=== PATIENT | female | born 1985 | race Caucasian/White ===

== ENCOUNTER 2023-07-06 14:55 | Emergency (ER) | payer MEDICAID ==
[~2023-07-06] VITALS: Ht 157.5 cm; Wt 63.5 kg
[2023-07-06 15:00] VITALS: BP_SYST 119; PULSE 113; RESP 24; TEMP 98.1; O2SAT 99
[2023-07-06 16:06] LABS: BASOPHILS # (AUTO) 0.1 K/uL (0.0-0.2); BASOPHILS % (AUTO) 0.9 % (0.0-2.0); EOSINOPHILS % (AUTO) 0.7 % (0.0-4.0); HEMATOCRIT 42.1 % (36-48); HEMOGLOBIN 13.8 g/dL (12.0-16.0); LYMPHOCYTES # (AUTO) 1.6 K/uL (1.0-5.5); LYMPHOCYTES % (AUTO) 23.6 % (20.5-51.5); MEAN CORPUSCULAR HEMOGLOBIN 27 pg (27-31); MEAN CORPUSCULAR HGB CONC 33 % (32-36); MEAN CORPUSCULAR VOLUME 82 fL (79.0-98.0); MONOCYTES % (AUTO) 14.5 % (1.7-9.3); NEUTROPHILS % (AUTO) 60.3 % (40.0-70.0); PLATELET COUNT (AUTO) 200 K/uL (130-430); RED BLOOD CELL COUNT(AUTO) 5.13 MIL/uL (4.2-6.2); RED CELL DISTRIBUTION WIDTH 16.3 % (9.0-15.0); WHITE BLOOD COUNT (AUTO) 6.6 K/uL (4.8-10.8)
[2023-07-06 16:16] LABS: SERUM HCG (QUALITATIVE) NEGATIVE (NEGATIVE)
[2023-07-06 16:28] LABS: ANION GAP 16 (5-15); CALCIUM 8.7 mg/dL (8.4-11.0); CARBON DIOXIDE 18 mmol/L (23-29); CHLORIDE 101 mmol/L (98-107); CREATININE 0.58 mg/dL (0.55-1.30); GFR AFRICAN AMERICAN 152 mL/min (>90); GLUCOSE 86 mg/dL (74-106); POTASSIUM 3.9 mmol/L (3.5-5.1); SODIUM SERUM 135 mmol/L (136-145); UREA NITROGEN, BLOOD 10 mg/dL (8-21)
[2023-07-06 16:29] LABS: GFR NON AFRICAN-AMERICAN 126 mL/min (>90)
[2023-07-06 16:34] LABS: ALANINE AMINOTRANSFERASE 17 U/L (12-78); ALBUMIN 3.8 g/dL (3.4-4.8); ASPARTATE AMINOTRANSFERASE 28 U/L (10-37); CREATINE KINASE, TOTAL 571 U/L (26-192); SALICYLATE 3 mg/dL (3-30); TOTAL BILIRUBIN 0.6 mg/dL (0.0-1.0); TOTAL PROTEIN, SERUM 7.8 g/dL (6.4-8.3)
[2023-07-06 16:37] LABS: ACETAMINOPHEN < 1 ug/mL (1-30); ALCOHOL, BLOOD < 3 mg/dL (<10)
[2023-07-06 17:02] LABS: CKMB RELATIVE INDEX 0.6 (0.0-2.9); CREATINE KINASE MB 3.3 ng/mL (0-3.6)
[2023-07-07] MEDS ORDERED: LORazepam 1 MG TABLET PO ONE (10:45)
[2023-07-07 12:42] VITALS: BP_SYST 126; PULSE 69; RESP 16; TEMP 98.1; O2SAT 99
== END 2023-07-07 12:40 ==
LOC: EDBD 14:55 → SED 14:55
DX: Z73.6 Limitation of activities due to disability (principal); Z79.899 Other long term (current) drug therapy; Z20.822 Contact with and (suspected) exposure to COVID-19
CPT/HCPCS: 99291; 87426; 80053; 82550; 82553; 84703; 85025; 84484; 36415; 93005; G0482; G0480; G0481